=== PATIENT | female | born 1970 | race African-American/Black ===

== ENCOUNTER 2016-07-22 17:51 | Emergency (ER) | payer OTHER ==
[2016-07-22] MEDS ORDERED: CLINDAMYCIN 600 MG/4 ML VIAL ONE (18:30)
[2016-07-22] MEDS ORDERED: DILAUDID 1 MG/ML AMP ONE (18:31)
[2016-07-22] MEDS ORDERED: LIDOCAINE 2% VISC 15 ML UDC ONE (18:55)
== END 2016-07-22 19:18 | disposition home or self-care (01) ==
LOC: ER 17:51
DX: K04.7 Periapical abscess without sinus (principal)
CPT/HCPCS: 96372; 99283; J1170

== ENCOUNTER 2016-08-08 12:03 | Emergency (ER) | payer OTHER ==
[2016-08-08] MEDS ORDERED: DILAUDID 1 MG/ML AMP ONE ×2 (12:51→14:22)
[2016-08-08] MEDS ORDERED: OPTIRAY 350 100 ML VIAL HMH IV ONE (13:33)
== END 2016-08-08 14:43 | disposition home or self-care (01) ==
LOC: ER 13:32
DX: R10.2 Pelvic and perineal pain (principal); N99.89 Other postprocedural complications and disorders of genitourinary system; R09.1 Pleurisy
CPT/HCPCS: 36415; 71260; 74160; 80047; 80053; 81003; 83690; 85014; 85025; 96374; 96376; 99285; J1170; Q9967